=== PATIENT | female | born 1955 | race Caucasian/White ===

== ENCOUNTER 2019-08-06 14:31 | Outpatient (CLI) | payer OTHER ==
--- NOTE | 2019-08-06 15:12 | MMO ---
Bilateral MAMMO Bilat Screen [facility]. CLINICAL HISTORY: Patient is 64 years old and is seen for screening. The patient has the following family history of breast cancer: mother, at age 80, malignant (generic). The patient has no personal history of cancer. The patient has a history of bilateral Breast reduction in 1983 - benign. VIEWS: The views performed were: bilateral craniocaudal with tomosynthesis and bilateral mediolateral oblique with tomosynthesis. FILMS COMPARED: The present examination has been compared to prior imaging studies performed at [facility] on 09/01/2014, and at [facility] on 10/25/2009 and 12/18/2012. This study has been interpreted with the assistance of computer-aided detection. MAMMOGRAM FINDINGS: There are scattered fibroglandular densities. There are benign appearing calcifications seen in both breasts. There are no suspicious masses, suspicious calcifications, or new areas of architectural distortion. IMPRESSION: THERE IS NO MAMMOGRAPHIC EVIDENCE OF MALIGNANCY. A ROUTINE FOLLOW-UP MAMMOGRAM IN 1 YEAR IS RECOMMENDED. THE RESULTS OF THIS EXAM WERE SENT TO THE PATIENT. ACR BI-RADS Category 2 - Benign finding MAMMOGRAPHY NOTE: 1. A negative mammogram report should not delay a biopsy if a dominant of clinically suspicious mass is present. 2. Approximately 10% to 15% of breast cancers are not detected by mammography. 3. Adenosis and dense breasts may obscure an underlying neoplasm. Reported by: LAINEY BLAKELY MD Electonically Signed: [id number]
== END 2019-08-06 14:32 | disposition home or self-care (01) ==
LOC: BICMAMMO 14:31
PROVIDERS: ATTEND Specialist
DX: Z12.31 Encounter for screening mammogram for malignant neoplasm of breast (principal); Z80.3 Family history of malignant neoplasm of breast
CPT/HCPCS: 77063; 77067

== ENCOUNTER 2020-12-28 15:24 | Outpatient (CLI) | payer MEDICARE, BC ==
[~2020-12-28 15:24] MED LIST: Magnevist 469MG/ML 20 ML VIAL ONE
== END 2020-12-28 15:25 | disposition home or self-care (01) ==
LOC: BICMRI 15:24
PROVIDERS: ATTEND Psychiatry & Neurology Neurology
DX: G20 Parkinson's disease (principal); I67.82 Cerebral ischemia
CPT/HCPCS: 70553; 82565; A9579